=== PATIENT | male | born 1955 | race Caucasian/White ===

== ENCOUNTER 2019-01-03 14:05 | Emergency (ER) | payer OTHER ==
[~2019-01-03] VITALS: Ht 177.8 cm; Wt 109.3 kg
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
[2019-01-03] MEDS ORDERED: BACITRACIN ZINC TOPICAL OINT PACKET. TP ONE (15:38)
[2019-01-03 15:45] VITALS: BP 138/69
== END 2019-01-03 15:50 | disposition home or self-care (01) ==
LOC: ER 14:05
DX: S60.221A Contusion of right hand, initial encounter (principal); S40.012A Contusion of left shoulder, initial encounter; R07.89 Other chest pain; I25.810 Atherosclerosis of coronary artery bypass graft(s) without angina pectoris; E11.9 Type 2 diabetes mellitus without complications; Z88.8 Allergy status to other drugs, medicaments and biological substances; V89.2XXA Person injured in unspecified motor-vehicle accident, traffic, initial encounter; Y93.I9 Activity, other involving external motion; Y92.488 Other paved roadways as the place of occurrence of the external cause; Y99.8 Other external cause status
CPT/HCPCS: 71045; 73130; 99284